=== PATIENT | female | born 1995 | race Caucasian/White ===

== ENCOUNTER 2023-10-11 10:08 | Outpatient (CLI) | payer OTHER, SELFPAY ==
[2023-10-11 11:32] LABS: HCG,Quantitative < 2 mIU/ml (0-5.42)
[2023-10-12 14:35] LABS: Progesterone 6.9 ng/mL (.)
== END 2023-10-11 23:59 ==
PROVIDERS: PCP Pediatrics; Visit Provider Obstetrics & Gynecology
DX: Z32.00 Encounter for pregnancy test, result unknown (principal)
CPT/HCPCS: 36415; 84144; 84702

== ENCOUNTER 2023-11-29 15:24 | Outpatient (CLI) | payer OTHER, SELFPAY ==
--- NOTE | 2023-11-29 15:27 | XR_ITS ---
FINAL REPORT CLINICAL HISTORY: Left lateral ankle pain from fall today. FINDINGS: LEFT ANKLE Three views demonstrate no acute fracture or dislocation. The mortise is intact. There is diffuse soft tissue swelling about the ankle. A moderate plantar spur is noted. IMPRESSION: Diffuse soft tissue swelling with no acute bony abnormality. Reviewed, Interpreted and Dictated by Elder Orta MD Transcribed by Dawn Zavala Authenticated and [facility]
== END 2023-11-29 23:59 ==
LOC: RAD 15:25
PROVIDERS: PCP Nurse Practitioner; Visit Provider Orthopaedic Surgery
DX: M25.572 Pain in left ankle and joints of left foot (principal)
CPT/HCPCS: 73610

== ENCOUNTER 2023-12-13 08:55 | Outpatient (CLI) | payer OTHER, SELFPAY ==
[2023-12-13 10:00] LABS: HCG,Quantitative 62 mIU/ml (0-5.42)
== END 2023-12-13 23:59 ==
LOC: LAB 08:55
PROVIDERS: PCP Nurse Practitioner; Visit Provider Obstetrics & Gynecology
DX: N92.6 Irregular menstruation, unspecified (principal)
CPT/HCPCS: 36415; 84144; 84702

== ENCOUNTER 2023-12-16 09:05 | Outpatient (CLI) | payer OTHER, SELFPAY ==
[2023-12-16 10:16] LABS: HCG,Quantitative 306 mIU/ml (0-5.42)
== END 2023-12-16 23:59 ==
LOC: LAB 09:05
PROVIDERS: PCP Nurse Practitioner; Visit Provider Obstetrics & Gynecology
DX: Z32.00 Encounter for pregnancy test, result unknown (principal)
CPT/HCPCS: 36415; 84702

== ENCOUNTER 2023-12-27 15:54 | Outpatient (CLI) | payer OTHER, SELFPAY | END 2023-12-27 23:59 | LOC: LAB.DROPOF 15:55 | PROVIDERS: PCP Obstetrics & Gynecology; Visit Provider Obstetrics & Gynecology | DX: O26.891 Other specified pregnancy related conditions, first trimester (principal); Z3A.09 9 weeks gestation of pregnancy; B95.2 Enterococcus as the cause of diseases classified elsewhere | CPT/HCPCS: 87086 ==

== ENCOUNTER 2023-12-30 16:05 | Outpatient (CLI) | payer OTHER, SELFPAY ==
[2023-12-30 16:39] LABS: Basophils # 0.1 K/mm3 (0-0.2); Basophils % 0.5 % (0.1-2.0); Eosinophils # 0.1 K/mm3 (0.0-0.4); Eosinophils % 0.9 % (0.1-12.0); Hematocrit 37.1 % (37.0-47.0); Hemoglobin 12.1 g/dL (12.2-16.2); Mean Corpuscular HGB Conc 32.8 g/dL (31.8-35.4); Mean Corpuscular Volume 85.5 fl (81-99); Mean Platelet Volume 8.2 fl (7.4-10.4); Monocytes # 0.5 K/mm3 (0.1-1.0); Monocytes % 4.9 % (1.7-9.3); Neutrophils # 6.7 K/mm3 (1.8-7.8); Neutrophils % 72.6 % (37.0-80.0); Platelet Count 297 K/mm3 (142-424); Red Blood Count 4.34 M/mm3 (4.20-5.40); Red Cell Distribution Width 14.2 % (11.5-17.5); White Blood Count 9.2 K/mm3 (4.8-10.8)
[2023-12-31 12:18] LABS: HIV Screen 4th Generation wRfx Non Reactive (Non Reactive); Rapid Plasma Reagin Ab Titer Non Reactive titer (NonRea<1:1)
[2024-01-01 08:42] LABS: Hepatitis B Surface Antigen Negative; Hepatitis C Antibody Non Reactive
== END 2023-12-30 23:59 ==
LOC: LAB 16:06
PROVIDERS: PCP Nurse Practitioner; Visit Provider Obstetrics & Gynecology
DX: O26.891 Other specified pregnancy related conditions, first trimester (principal); Z3A.09 9 weeks gestation of pregnancy
CPT/HCPCS: 36415; 85025; 86593; 86703; 86762; 86850; 87340; 87380; G0432

== ENCOUNTER 2024-01-02 15:32 | Outpatient (CLI) | payer OTHER, SELFPAY ==
--- NOTE | 2024-01-02 15:32 | US_ITS ---
PROCEDURE: US OB <= 14 WEEKS FETUS CLINICAL INDICATION: Dates/Confirmation of -Viability COMPARISON: No exams were available for comparison FINDINGS: Transvaginal sonographic images of the pelvis were obtained. From her last menstrual period she is 9weeks 1day. A single intrauterine gestational sac is present with a pole with a crown-rump length of 0.77cm This correlates to a gestational age of 6weeks 5days. heart tones are present with an FHR of 124bpm. Yolk sac is noted. The yolk sac measures 5.6mm. There is a small subchorionic hemorrhage. The right ovary is seen and appears normal. The left ovary is seen and appears normal. There is a corpus luteum in the left ovary. There is no fluid in the cul-de-sac. IMPRESSION: 1. Viable intrauterine currently 6 weeks 5 days gestational age. 2. There is a size/date discrepancy and her new EMPERATRIZ will be 08/22/2024 based on this ultrasound. 3. Small subchorionic hemorrhage noted. 4. A corpus luteum is seen in the left ovary. Dictated by: Bao Lee MD 01/03/2024 07:51 Bao Lee MD in [facility] 01/03/2024 07:51
== END 2024-01-02 23:59 ==
LOC: RAD 15:32
PROVIDERS: PCP Nurse Practitioner; Visit Provider Obstetrics & Gynecology
DX: O26.891 Other specified pregnancy related conditions, first trimester (principal); Z3A.01 Less than 8 weeks gestation of pregnancy
CPT/HCPCS: 76801

== ENCOUNTER 2024-02-28 12:05 | Outpatient (CLI) | payer OTHER, SELFPAY ==
[2024-02-28 12:50] VITALS: BP 126/70; PULSE 96; RESP 18; O2SAT 98
[2024-02-28] MEDS: MVI, ADULT NO.1 WITH VIT K 10 ML, THIAMINE HCL 100 MG, MAGNESIUM SULFATE 2 GM in LACTAT... 250 ML IV (12:50)
[2024-02-28 14:39] LABS: Thyroid Stimulating Hormone 0.67 uIU/mL (0.465-4.68)
[2024-02-28 16:13] VITALS: BP 121/68; PULSE 86; RESP 18; O2SAT 100
== END 2024-02-28 16:13 | disposition home or self-care (01) ==
PROVIDERS: PCP Nurse Practitioner; Visit Provider Obstetrics & Gynecology
DX: O21.9 Vomiting of pregnancy, unspecified (principal); E06.3 Autoimmune thyroiditis; E05.00 Thyrotoxicosis with diffuse goiter without thyrotoxic crisis or storm; Z79.899 Other long term (current) drug therapy; E86.0 Dehydration; O26.891 Other specified pregnancy related conditions, first trimester; Z3A.14 14 weeks gestation of pregnancy
CPT/HCPCS: 84443; 96365; 96366; J7120

== ENCOUNTER 2024-04-08 07:27 | Outpatient (CLI) | payer OTHER, SELFPAY ==
--- NOTE | 2024-04-08 | US_ITS ---
PROCEDURE: US OB >= 14 WEEKS FETUS CLINICAL INDICATION: COMPARISON: No exams were available for comparison FINDINGS: Transabdominal sonographic images of the pelvis were obtained. The following parameters are obtained: From her established due date she is 20weeks 4days Viable fetus in the cephalic presentation with a posterior placenta grade 1. The cervix measures 4.4-4.9 cm transvaginally. The placenta is well away from the cervix. heart rate: 146bpm bpm. Amniotic fluid index: Fluid appears normal. No obvious anomalies evident. profile seen, nasion appear normal. IMPRESSION: 1. This is a 2nd ultrasound done today looking at the fetus transabdominally. 2. Viable fetus in the cephalic presentation with a posterior placenta grade 1. 3. The fluid is within normal limits. 4. Baby is active. 5. On a previous ultrasound the cervix transvaginally measures 4.4-4.9 cm. 6. No evidence of bleeding or abruption. No obvious cause for the vaginal bleeding. Dictated by: aBo Lee MD 04/08/2024 10:14 Bao Lee MD in [facility] 04/08/2024 10:14
[2024-04-08 07:56] VITALS: BP 139/67; PULSE 99; RESP 18; TEMP 36.4; O2SAT 99; BMI 44.2
[2024-04-08 07:58] VITALS: BMI 44.2
--- NOTE | 2024-04-08 08:02 | US_ITS ---
PROCEDURE: US OB TRANSVAGINAL CLINICAL INDICATION: vaginal bleeding COMPARISON: US US OB <= 14 WEEKS FETUS from 01/02/2024 US US OB >= 14 WEEKS FETUS from 04/08/2024 FINDINGS: Transabdominal sonographic images of the uterus were obtained. From her established due date she is 20weeks 4days. The following parameters are obtained: Viable Fetus in the cephalic presentation with a posterior placenta grade 1. No evidence of placental abruption. The placenta is well away from the cervix. The cervix measures 4.4-4.9 cm transvaginally. A Hinds Jimenez contraction is seen in the lower uterine segment anteriorly. The fetus is active. Amniotic fluid index: Appears normal. No obvious anomalies evident.Profile, nasion, appears normal. IMPRESSION: 1. Viable fetus in the cephalic presentation with a posterior placenta grade 1. 2. There is no evidence of abruption and no active bleeding seen from the placenta. 3. The placenta is well away from the cervix. 4. Transvaginally the cervix measures 4.4-4.9 cm in length. 5. The fluid is normal around the fetus. 6. Fetus is active. Dictated by: Bao Lee MD 04/08/2024 10:11 Bao Lee MD in [facility] 04/08/2024 10:11
[2024-04-08 08:03] LABS: Microscopic, Urine URINE MICROSCOPIC (MICROSCOPIC)
[2024-04-08 08:17] LABS: Appearance,Urine CLEAR (Clear); Blood, Urine 2+ (Negative); Color,Urine YELLOW (Yellow); Glucose,Urine (UA) Negative (Negative); Ketones,Urine Negative (Negative); Leukocyte Esterase,Urine Negative (Negative); Nitrate,Urine Negative (Negative); Protein,Urine Negative (Negative); Specific Gravity, Urine >= 1.030 (1.005-1.030)
[2024-04-08 08:31] LABS: Amphetamine/Metha Screen,Urine Negative ng/ml (<1000); Barbiturates Screen,Urine Negative ng/ml (<200)
[2024-04-08 08:32] LABS: Benzodiazepines Screen,Urine Negative ng/ml (<200); Cannabinoid Screen,Urine Negative ng/ml (<50)
[2024-04-08 08:33] LABS: Calcium Oxalate Crystals,Urine Trace /lpf; Cocaine Screen,Urine Negative ng/ml (<300); Squamous Epithelial Cell,Urine 20-50 #/hpf (0-5)
[2024-04-08 08:34] LABS: Methadone Screen,Urine Negative ng/ml (<300); Opiate Screen,Urine Negative ng/ml (<300)
[2024-04-08 08:35] LABS: Phencyclidine Screen,Urine Negative ng/ml (<25)
[2024-04-08 08:38] LABS: Amorphous Sediment,Urine Trace /lpf; Bacteria,Urine Trace /lpf; Mucus,Urine Trace /lpf
[2024-04-08 16:05] LABS: Bilirubin,Urine 1+ (Negative)
== END 2024-04-08 09:51 | disposition home or self-care (01) ==
LOC: OBOUT 07:29 → OB 07:29
PROVIDERS: PCP Nurse Practitioner; Visit Provider Nurse Practitioner Obstetrics & Gynecology
DX: O46.92 Antepartum hemorrhage, unspecified, second trimester (principal); Z3A.20 20 weeks gestation of pregnancy
CPT/HCPCS: 76805; 76817; 80307; 81001; G0463

== ENCOUNTER 2024-04-10 15:22 | Outpatient (CLI) | payer OTHER, SELFPAY ==
--- NOTE | 2024-04-10 15:23 | US_ITS ---
PROCEDURE: US OB /MATERNAL DETAIL CLINICAL INDICATION: 20 wk ob complete-Anatomy COMPARISON: US US OB <= 14 WEEKS FETUS from 01/02/2024 FINDINGS: Transabdominal sonographic images of the pelvis were obtained. From her established due date she is 20 weeks 6 days. Single viable intrauterine gestation. Cephalic position. Placenta: Posteriorplacenta grade 1. There is an average amount of fluid. MVP 6.52 cm. The cervix appears satisfactory. Closed and measuring 3.8 cm in length. Complete survey performed and was unremarkable on the submitted images as in PACS. No discrete anomalies identified on survey imaging by technologist. Active fetus. Three-vessel cord with satisfactory umbilical cord insertion. 4- chamber heart noted. Situs, aortic arch, LVOT, RVOT, three-vessel view appear normal. Survey of brain & ventricles Unremarkable. Cerebellum, thalamus, choroid plexus, cisterna magna appear normal. Face and neck survey unremarkable. Profile, nasion, lips and nose appeared normal. Diaphragm and chest views unremarkable. Abdomen: Both kidneys noted and unremarkable. Stomach and bladder noted and satisfactory. Spine: Survey of the spine was not done today due to position. Both arms and legs noted. Amniotic Fluid: Adequate. Measurements: Average ultrasound age 21weeks 5days. Estimated due date by ultrasound age 1108/16/2024. Estimated weight 464g BPD = 21weeks 6days HC = 20weeks 6days AC = 22weeks 6days FL = 21weeks 2days Growth Percentile= 93 Heart Rate = 150bpm Cerebellum = 19weeks 6days Humerus = 21weeks 4days HC/AC is 1.03 FL/BPD is 0.68 FL/AC is 0.2 IMPRESSION: 1. Viable fetus in the cephalic presentation with a posterior placenta grade 1. 2. The fluid is within normal limits with an MVP of 6.52 cm. 3. Anatomical scan appears normal. 4. biometry is consistent with a dates. 5. spine anatomy and aortic arch were not seen today secondary to position. Suggest repeat scan in 2 weeks. Dictated by: Bao Lee MD 04/11/2024 11:52 Bao Lee MD in [facility] 04/11/2024 11:52
== END 2024-04-10 23:59 | disposition home or self-care (01) ==
LOC: RAD 15:23
PROVIDERS: PCP Nurse Practitioner; Visit Provider Obstetrics & Gynecology
DX: Z36.3 Encounter for antenatal screening for malformations (principal); Z3A.20 20 weeks gestation of pregnancy
CPT/HCPCS: 76811

== ENCOUNTER 2024-04-15 17:00 | Outpatient (CLI) | payer OTHER, SELFPAY | END 2024-04-15 23:59 | disposition home or self-care (01) | LOC: LAB.DROPOF 17:01 | PROVIDERS: PCP Obstetrics & Gynecology; Visit Provider Obstetrics & Gynecology | DX: L02.91 Cutaneous abscess, unspecified (principal) | CPT/HCPCS: 87070; 87077; 87186; 87205 ==

== ENCOUNTER 2024-04-22 16:27 | Outpatient (CLI) | payer OTHER, SELFPAY ==
[2024-04-22 20:04] LABS: Creatinine,Urine Random 127 mg/dL (Not Estab.)
== END 2024-04-22 23:59 | disposition home or self-care (01) ==
LOC: LAB.DROPOF 16:27
PROVIDERS: PCP Obstetrics & Gynecology; Visit Provider Obstetrics & Gynecology
DX: O23.42 Unspecified infection of urinary tract in pregnancy, second trimester (principal); R51.9 Headache, unspecified; H53.9 Unspecified visual disturbance; N39.0 Urinary tract infection, site not specified; B96.20 Unspecified Escherichia coli [E. coli] as the cause of diseases classified elsewhere; Z3A.22 22 weeks gestation of pregnancy
CPT/HCPCS: 82570; 84156; 87086; 87088; 87186

== ENCOUNTER 2024-04-24 10:26 | Outpatient (CLI) | payer OTHER, SELFPAY ==
--- NOTE | 2024-04-24 10:28 | US_ITS ---
PROCEDURE: US OB FOLLOW UP CLINICAL INDICATION: follow up scan in 2 weeks for spine anatomy COMPARISON: US US OB /MATERNAL DETAIL from 04/10/2024 FINDINGS: Transabdominal sonographic images of the pelvis were obtained. The following parameters are obtained: From her established due date she is 22weeks 6days Viable fetus in the cephalic presentation with a posterior placenta grade 1. The cervix measures 2.78 cm-3.15 cm. heart rate: 140bpm bpm Amniotic fluid: MVP 7.71 cm. No obvious anomalies evident. profile seen, stomach, bladder, kidneys, three-vessel cord, four chamber heart appear normal. Aortic arch: The aortic arch is seen and appears normal. spine: Cervical, thoracic and lower spine appear normal. IMPRESSION: 1. Viable fetus in the cephalic presentation with a posterior placenta grade 1. 2. The fluid is within normal limits with an MVP of 7.71 cm. 3. Limited anatomical scan appears normal today. The aortic arch and spine are seen in their entirety appear normal. 4. The rest of the limited anatomical scan appears normal. Dictated by: Bao Lee MD 04/25/2024 12:47 Bao Lee MD in [facility] 04/25/2024 12:47
== END 2024-04-24 23:59 | disposition home or self-care (01) ==
LOC: RAD 10:26
PROVIDERS: PCP Nurse Practitioner; Visit Provider Obstetrics & Gynecology
DX: Z36.2 Encounter for other antenatal screening follow-up (principal); Z3A.22 22 weeks gestation of pregnancy
CPT/HCPCS: 76816

== ENCOUNTER 2024-06-09 17:06 | Outpatient (CLI) | payer OTHER, SELFPAY ==
[2024-06-09 18:12] VITALS: BMI 46.0
[2024-06-09 18:29] VITALS: BP 118/70; PULSE 97; RESP 18; TEMP 36.9; O2SAT 100; BMI 46.0
[2024-06-09 18:31] LABS: Benzodiazepines Screen,Urine Negative ng/ml (<200)
[2024-06-09 18:32] LABS: Amphetamine/Metha Screen,Urine Negative ng/ml (<1000); Barbiturates Screen,Urine Negative ng/ml (<200)
[2024-06-09 18:33] LABS: Methadone Screen,Urine Negative ng/ml (<300)
[2024-06-09 18:34] LABS: Cannabinoid Screen,Urine Negative ng/ml (<50); Cocaine Screen,Urine Negative ng/ml (<300)
[2024-06-09 18:35] LABS: Opiate Screen,Urine Negative ng/ml (<300)
[2024-06-09 18:35] LABS: Fetal Membrane Rupture (Rapid) Negative (Negative)
[2024-06-09 18:36] LABS: Phencyclidine Screen,Urine Negative ng/ml (<25)
[2024-06-09 18:44] LABS: Microscopic, Urine URINE MICROSCOPIC (MICROSCOPIC)
[2024-06-09 18:45] LABS: Appearance,Urine CLEAR (Clear); Bilirubin,Urine Negative (Negative); Blood, Urine Negative (Negative); Color,Urine YELLOW (Yellow); Glucose,Urine (UA) Negative (Negative); Ketones,Urine 1+ (Negative); Leukocyte Esterase,Urine TRACE (Negative); Nitrate,Urine Negative (Negative); Protein,Urine Negative (Negative); Specific Gravity, Urine >= 1.030 (1.005-1.030); Urobilinogen,Urine 0.2 EU/dl (0.2)
[2024-06-09 19:06] LABS: Bacteria,Urine 4+ /lpf; Calcium Oxalate Crystals,Urine 1+ /lpf; WBC,Urine 20-50 #/hpf (0-3); Yeast,Urine Occasional /lpf
[2024-06-09] MEDS: LACTATED RINGERS 1000ML 1,000 ML 999 ML IV (19:35)
[2024-06-09] MEDS: BETAMETHASONE ACET/PHOS 6MG/ML 5ML MDV 12 MG IM (19:47)
== END 2024-06-09 20:25 | disposition home or self-care (01) ==
LOC: OBOUT 17:08 → OB 17:08
PROVIDERS: PCP Nurse Practitioner; Visit Provider Nurse Practitioner Obstetrics & Gynecology
DX: O42.913 Preterm premature rupture of membranes, unspecified as to length of time between rupture and onset of labor, third trimester (principal); O47.03 False labor before 37 completed weeks of gestation, third trimester; Z3A.29 29 weeks gestation of pregnancy
CPT/HCPCS: 80307; 81001; 84112; 87086; G0463; J0702; J7120

== ENCOUNTER 2024-06-10 19:40 | Outpatient (CLI) | payer OTHER, SELFPAY ==
[2024-06-10 19:40] VITALS: BP 136/95; PULSE 99; RESP 18; TEMP 36.8; O2SAT 99
--- NOTE | 2024-06-10 19:50 | PC.NURSE ---
Pt arrived to unit in room 272 to recieved second dose of celestone. Pt is A/O, denies discomfort, reports positive movement.
[2024-06-10] MEDS: BETAMETHASONE ACET/PHOS 6MG/ML 5ML MDV 12 MG IM (19:57)
--- NOTE | 2024-06-10 20:00 | PC.NURSE ---
Pt ambulating off unit at this time. Tolerated injection well without any negative effects noted. Denies any questions at this time.
== END 2024-06-10 20:00 | disposition home or self-care (01) ==
LOC: OBOUT 19:41 → OB 19:42
PROVIDERS: PCP Nurse Practitioner; Visit Provider Nurse Practitioner Obstetrics & Gynecology
DX: O26.893 Other specified pregnancy related conditions, third trimester (principal); Z3A.29 29 weeks gestation of pregnancy
CPT/HCPCS: G0463; J0702

== ENCOUNTER 2024-06-15 10:39 | Outpatient (CLI) | payer OTHER, SELFPAY ==
--- NOTE | 2024-06-15 10:40 | US_ITS ---
PROCEDURE: US OB FOLLOW UP CLINICAL INDICATION: LGA COMPARISON: US US OB /MATERNAL DETAIL from 04/10/2024 US US OB FOLLOW UP from 04/24/2024 FINDINGS: Transabdominal sonographic images of the pelvis were obtained. The following parameters are obtained: From her established due date she is 30weeks 2days Viable fetus in the cephalic presentation with a posterior placenta grade 2. The cervix measures 3.4 cm transvaginally heart rate: 149bpm bpm. weight 1782 grams, 3 lb 15 oz. BPD: 32weeks 4days, 93 percentile HC: 32weeks 3days, 72 percentile AC: 31weeks 5days, 82 percentile FL: 31weeks 0 days, 52 percentile HC/AC: 1.06 FL/BPD: 0.73 FL/AC: 0.22 Growth percentile: 79 Amniotic fluid index: 10.8cm, MVP 6.22 cm. No obvious anomalies evident. profile seen, stomach, bladder, kidneys, lips, nose, three-vessel cord, appear normal. IMPRESSION: 1. Viable fetus in the cephalic presentation with a posterior placenta grade 2. 2. The fluid is within normal limits with an amniotic fluid index of 10.8 cm, MVP 6.22 cm. 3. There has been good interval growth with the fetus currently 79th percentile. 4. Limited anatomical scan appears normal. 5. Cervix measures 2.8 cm-3.4 cm and the operations assistant commented that the cervix appeared softened. Dictated by: Bao Lee MD 06/15/2024 11:42 Bao Lee MD in [facility] 06/15/2024 11:42
== END 2024-06-15 23:59 | disposition home or self-care (01) ==
LOC: RAD 10:40
PROVIDERS: PCP Nurse Practitioner; Visit Provider Obstetrics & Gynecology
DX: O36.60X0 Maternal care for excessive fetal growth, unspecified trimester, not applicable or unspecified (principal); Z98.891 History of uterine scar from previous surgery; Z3A.30 30 weeks gestation of pregnancy
CPT/HCPCS: 76816

== ENCOUNTER 2024-06-15 12:21 | Outpatient (CLI) | payer OTHER, SELFPAY ==
[2024-06-15 12:30] VITALS: BP 95/63; PULSE 99; RESP 18; TEMP 36.9; O2SAT 100
[2024-06-15 12:32] VITALS: BMI 46.0
[2024-06-15 13:00] VITALS: BMI 46.0
== END 2024-06-15 13:45 | disposition home or self-care (01) ==
LOC: OBOUT 12:22 → OB 12:23
PROVIDERS: PCP Nurse Practitioner; Visit Provider Obstetrics & Gynecology
DX: O47.03 False labor before 37 completed weeks of gestation, third trimester (principal); Z3A.30 30 weeks gestation of pregnancy
CPT/HCPCS: G0463

== ENCOUNTER 2024-06-19 08:03 | Outpatient (CLI) | payer OTHER, SELFPAY ==
[2024-06-19 08:20] LABS: Basophils # 0.1 K/mm3 (0-0.2); Basophils % 0.5 % (0.1-2.0); Eosinophils # 0.1 K/mm3 (0.0-0.4); Eosinophils % 0.6 % (0.1-12.0); Hematocrit 35.9 % (37.0-47.0); Hemoglobin 11.5 g/dL (12.2-16.2); Lymphocytes # 1.6 K/mm3 (0.7-4.5); Mean Corpuscular HGB Conc 32.1 g/dL (31.8-35.4); Mean Corpuscular Hemoglobin 26.8 pg (27.0-31.2); Mean Corpuscular Volume 83.6 fl (81-99); Mean Platelet Volume 9.4 fl (7.4-10.4); Monocytes # 0.5 K/mm3 (0.1-1.0); Monocytes % 5.3 % (1.7-9.3); Neutrophils # 7.3 K/mm3 (1.8-7.8); Neutrophils % 76.6 % (37.0-80.0); Platelet Count 292 K/mm3 (142-424); Red Blood Count 4.29 M/mm3 (4.20-5.40); Red Cell Distribution Width 14.8 % (11.5-17.5); White Blood Count 9.6 K/mm3 (4.8-10.8)
[2024-06-19 08:58] LABS: Glucose,Fasting 87 mg/dl (74-100)
[2024-06-19 10:16] LABS: Glucose 1 Hour 92 mg/dL (74-100)
[2024-06-20 13:38] LABS: Rapid Plasma Reagin Ab Titer Non Reactive titer (NonRea<1:1)
== END 2024-06-19 23:59 | disposition home or self-care (01) ==
LOC: LAB 08:04
PROVIDERS: Visit Provider Obstetrics & Gynecology
DX: Z34.90 Encounter for supervision of normal pregnancy, unspecified, unspecified trimester (principal)
CPT/HCPCS: 36415; 82951; 85025; 86593

== ENCOUNTER 2024-06-22 08:02 | Outpatient (CLI) | payer OTHER, SELFPAY ==
[2024-06-22 08:30] VITALS: BMI 45.7
[2024-06-22 08:35] VITALS: BP 109/65; PULSE 95; RESP 19; TEMP 36.8; O2SAT 98; BMI 45.7
[2024-06-22 08:35] LABS: Microscopic, Urine URINE MICROSCOPIC (MICROSCOPIC)
[2024-06-22 08:58] LABS: Appearance,Urine CLEAR (Clear); Bilirubin,Urine Negative (Negative); Blood, Urine Negative (Negative); Color,Urine YELLOW (Yellow); Glucose,Urine (UA) Negative (Negative); Ketones,Urine Negative (Negative); Leukocyte Esterase,Urine TRACE (Negative); Nitrate,Urine Negative (Negative); Protein,Urine Negative (Negative); Specific Gravity, Urine >= 1.030 (1.005-1.030)
[2024-06-22 09:11] LABS: Barbiturates Screen,Urine Negative ng/ml (<200)
[2024-06-22 09:12] LABS: Amphetamine/Metha Screen,Urine Negative ng/ml (<1000); Bacteria,Urine Trace /lpf; Benzodiazepines Screen,Urine Negative ng/ml (<200); WBC,Urine Occasional #/hpf (0-3)
[2024-06-22 09:13] LABS: Cannabinoid Screen,Urine Negative ng/ml (<50)
[2024-06-22 09:14] LABS: Cocaine Screen,Urine Negative ng/ml (<300); Methadone Screen,Urine Negative ng/ml (<300)
[2024-06-22 09:15] LABS: Opiate Screen,Urine Negative ng/ml (<300); Phencyclidine Screen,Urine Negative ng/ml (<25)
== END 2024-06-22 09:13 | disposition home or self-care (01) ==
LOC: OBOUT 08:03 → OB 08:04
PROVIDERS: PCP Nurse Practitioner; Visit Provider Obstetrics & Gynecology
DX: O26.893 Other specified pregnancy related conditions, third trimester (principal); Z3A.31 31 weeks gestation of pregnancy; R10.30 Lower abdominal pain, unspecified
CPT/HCPCS: 80307; 81001; G0463

== ENCOUNTER 2024-06-29 08:30 | Outpatient (CLI) | payer OTHER, SELFPAY ==
[2024-06-29 08:50] VITALS: BP 113/69; PULSE 78; RESP 18; TEMP 36.8; O2SAT 99; BMI 47.1
[2024-06-29 09:09] VITALS: BMI 47.1
--- NOTE | 2024-06-29 09:15 | EXP.ACUTE.PN ---
Subjective *Date: 06/29/24 *Time: 09:15 Interval history: She is 32 weeks gestational age and here for a nonstress test. Medical Exam Vital signs and Labs for Last 24 Hours: Intake and Output 06/28/24 06/29/24 06/29/24 19:59 03:59 11:59 Other: Weight 266 lb Patient Weight 06/29/24 11:59 Weight 266 lb I & O for Labs for Last 24 Hours: Intake & Output 06/26/24 06/27/24 06/28/24 06/29/24 11:59 11:59 11:59 11:59 Weight 266 lb ENT: Present normal exam Neck: Present normal inspection Respiratory: Present normal respiratory effort; Absent accessory muscle use Assessment and Plan *Assessment and plan (1) uterine contractions: Status: Acute Category: Medical Code(s): O47.00 - False labor before 37 completed weeks of gestation, unspecified trimester (2) Maternal obesity affecting , antepartum: Status: Acute Qualifiers: Obesity type affecting : severe obesity due to excess calories Qualified Code(s): O99.210 - Obesity complicating , unspecified trimester; E66.01 - Morbid (severe) obesity due to excess calories Category: Medical Code(s): O99.210 - Obesity complicating , unspecified trimester Plan She is here for nonstress test today. There are no contractions. The nonstress test is reactive. There is good [id number] variability with good accelerations. She will follow-up again in [address] Kenny.
== END 2024-06-29 09:15 | disposition home or self-care (01) ==
LOC: OBOUT 08:31 → OB 08:32
PROVIDERS: PCP Nurse Practitioner; Visit Provider Nurse Practitioner Obstetrics & Gynecology
DX: O47.03 False labor before 37 completed weeks of gestation, third trimester (principal); Z3A.32 32 weeks gestation of pregnancy
CPT/HCPCS: G0463

== ENCOUNTER 2024-07-06 08:36 | Outpatient (CLI) | payer OTHER, SELFPAY ==
[2024-07-06 08:57] VITALS: BP 123/68; PULSE 111; RESP 18; TEMP 36.7; O2SAT 98; BMI 47.1
== END 2024-07-06 09:40 | disposition home or self-care (01) ==
LOC: OBOUT 08:37 → OB 08:38
PROVIDERS: PCP Nurse Practitioner; Visit Provider Nurse Practitioner Obstetrics & Gynecology
DX: O47.03 False labor before 37 completed weeks of gestation, third trimester (principal); Z3A.33 33 weeks gestation of pregnancy
CPT/HCPCS: G0463

== ENCOUNTER 2024-07-07 11:47 | Outpatient (CLI) | payer OTHER, SELFPAY ==
[2024-07-07 12:22] VITALS: BMI 47.1
[2024-07-07 12:43] LABS: Fetal Membrane Rupture (Rapid) Negative (Negative)
[2024-07-07 12:56] VITALS: BP 110/67; PULSE 92; RESP 20; TEMP 36.6; O2SAT 98; BMI 47.1
[2024-07-07] MEDS: DEXTROSE 5%-LACTATED RINGERS 1,000 ML 999 ML IV ×2 (13:26→15:43)
[2024-07-07 15:28] LABS: Microscopic, Urine URINE MICROSCOPIC (MICROSCOPIC)
[2024-07-07 15:34] LABS: Appearance,Urine CLEAR (Clear); Bilirubin,Urine Negative (Negative); Blood, Urine Negative (Negative); Color,Urine YELLOW (Yellow); Glucose,Urine (UA) Negative (Negative); Ketones,Urine Negative (Negative); Leukocyte Esterase,Urine TRACE (Negative); Nitrate,Urine Negative (Negative); Protein,Urine Negative (Negative); Specific Gravity, Urine 1.025 (1.005-1.030); Urobilinogen,Urine 0.2 EU/dl (0.2)
[2024-07-07 15:41] LABS: Bacteria,Urine Trace /lpf
[2024-07-07 15:46] LABS: Barbiturates Screen,Urine Negative ng/ml (<200); Benzodiazepines Screen,Urine Negative ng/ml (<200)
[2024-07-07 15:47] LABS: Amphetamine/Metha Screen,Urine Negative ng/ml (<1000)
[2024-07-07 15:48] LABS: Cannabinoid Screen,Urine Negative ng/ml (<50); Cocaine Screen,Urine Negative ng/ml (<300)
[2024-07-07 15:49] LABS: Methadone Screen,Urine Negative ng/ml (<300)
[2024-07-07 15:50] LABS: Opiate Screen,Urine Negative ng/ml (<300); Phencyclidine Screen,Urine Negative ng/ml (<25)
[2024-07-07] MEDS: NIFEdipine 10MG CAPSULE 10 MG PO (16:27)
== END 2024-07-07 17:48 | disposition home or self-care (01) ==
LOC: OBOUT 11:49 → OB 11:49
PROVIDERS: PCP Nurse Practitioner; Visit Provider Nurse Practitioner Obstetrics & Gynecology
DX: O47.03 False labor before 37 completed weeks of gestation, third trimester (principal); Z3A.33 33 weeks gestation of pregnancy
CPT/HCPCS: 80307; 81001; 84112; G0463

== ENCOUNTER 2024-07-13 08:49 | Outpatient (CLI) | payer OTHER, SELFPAY ==
--- NOTE | 2024-07-13 08:54 | US_ITS ---
PROCEDURE: US OB BIOPHYSICAL PROFILE CLINICAL INDICATION: LGA/ Gestational hypertension COMPARISON: US US OB <= 14 WEEKS FETUS from 01/02/2024 US US OB >= 14 WEEKS FETUS from 04/08/2024 US US OB /MATERNAL DETAIL from 04/10/2024 US OB FOLLOW UP from 04/24/2024 US OB FOLLOW UP from 06/15/2024 FINDINGS: Transabdominal sonographic images of the uterus were obtained. From her established due date she is 34weeks 2days. The following parameters are obtained: Viable Fetus in the BREECH presentation with a posterior placenta grade 2. Average ultrasound age is 36weeks 0 days Estimated weight 2,819g, 6 lb 3 oz Cervix measures 3.43 cm. Measurements: heart Rate = 150bpm BPD = 36weeks 1day, 90 percentile HC = 36weeks 6days, 79 percentile AC = 36weeks 5days, 97 percentile FL = 34weeks 1day, 36 percentile HC/AC is 0.99 FL/BPD is 0.74 FL/AC is 0.2 89 percentile Amniotic Fluid: 2 breathing movement: 2 tone: 2 body movement: 2 Biophysical profile: 8 Amniotic fluid index: 13.12cm, MVP 4.86 cm. No obvious anomalies evident.Kidneys, profile, bladder, stomach, four-chamber heart, three-vessel cord appear normal. IMPRESSION: 1. Viable fetus in the BREECH presentation with a posterior placenta grade 2. 2. The fluid is within normal limits with an amniotic fluid index of 13.12 cm, MVP 4.86 cm. 3. There has been good interval growth with the fetus currently 89th percentile. The AC is more than 2 weeks ahead. 4. Biophysical profile is 8/8 with good breathing movement and movement seen. 5. Limited anatomical scan appears normal. Dictated by: Bao Lee MD 07/13/2024 11:34 Bao Lee MD in [facility] 07/13/2024 11:34
== END 2024-07-13 23:59 | disposition home or self-care (01) ==
LOC: RAD 08:50
PROVIDERS: PCP Nurse Practitioner; Visit Provider Obstetrics & Gynecology
DX: O36.63X0 Maternal care for excessive fetal growth, third trimester, not applicable or unspecified (principal); O13.3 Gestational [pregnancy-induced] hypertension without significant proteinuria, third trimester; Z3A.34 34 weeks gestation of pregnancy
CPT/HCPCS: 76816; 76819

== ENCOUNTER 2024-07-16 09:55 | Outpatient (CLI) | payer OTHER, SELFPAY ==
--- NOTE | 2024-07-16 09:59 | US_ITS ---
PROCEDURE: US OB BIOPHYSICAL PROFILE CLINICAL INDICATION: non reactive nst COMPARISON: US US OB TRANSVAGINAL from 04/08/2024 US US OB /MATERNAL DETAIL from 04/10/2024 US OB FOLLOW UP from 04/24/2024 US OB FOLLOW UP from 06/15/2024 US OB BIOPHYSICAL PROFILE from 07/13/2024 FINDINGS: Transabdominal sonographic images of the uterus were obtained. From her established due date she is 35weeks 2days. The following parameters are obtained: Viable Fetus in the cephalic presentation with a posterior placenta grade 2. Cervix measures 2.87 cm transvaginally. Measurements: heart Rate = 136bpm Amniotic fluid index: 10.59cm, MVP 3.96 cm. Qualitative AFV:2 Breathing movements: 2 Gross Body Movements: 2 Tone: 2 Biophysical profile score: 8 No obvious anomalies evident.Kidneys, profile, three-vessel cord appear normal. IMPRESSION: 1. Viable fetus in the cephalic presentation with a posterior placenta grade 2. 2. The fluid is within normal limits with an amniotic fluid index of 10.59 cm and MVP 3.96 cm. 3. Biophysical profile is 8/8 with good breathing movement and movement seen. 4. Limited anatomical scan appears normal. Dictated by: Bao Lee MD 07/17/2024 12:33 Bao Lee MD in [facility] 07/17/2024 12:33
[2024-07-16 13:15] LABS: Thyroid Stimulating Hormone 1.73 uIU/mL (0.465-4.68)
== END 2024-07-16 23:59 | disposition home or self-care (01) ==
LOC: RAD 09:55
PROVIDERS: PCP Nurse Practitioner; Visit Provider Obstetrics & Gynecology
DX: O99.213 Obesity complicating pregnancy, third trimester (principal); E66.01 Morbid (severe) obesity due to excess calories; O47.03 False labor before 37 completed weeks of gestation, third trimester; E06.3 Autoimmune thyroiditis; Z3A.35 35 weeks gestation of pregnancy
CPT/HCPCS: 36415; 76819; 84443

== ENCOUNTER 2024-07-20 08:13 | Outpatient (CLI) | payer OTHER, SELFPAY ==
[2024-07-20 08:27] VITALS: BMI 46.0
[2024-07-20 08:34] VITALS: BP 121/74; PULSE 93; RESP 17; TEMP 36.7; O2SAT 97; BMI 46.0
== END 2024-07-20 09:21 | disposition home or self-care (01) ==
LOC: OBOUT 08:16 → OB 08:16
PROVIDERS: PCP Nurse Practitioner; Visit Provider Obstetrics & Gynecology
DX: O60.03 Preterm labor without delivery, third trimester (principal); Z3A.35 35 weeks gestation of pregnancy
CPT/HCPCS: G0463

== ENCOUNTER 2024-07-23 15:30 | Outpatient (CLI) | payer OTHER, SELFPAY ==
[2024-07-23 15:59] LABS: Basophils % 0.3 % (0.1-2.0); Eosinophils # 0.1 K/mm3 (0.0-0.4); Eosinophils % 0.6 % (0.1-12.0); Hematocrit 36.1 % (37.0-47.0); Hemoglobin 11.9 g/dL (12.2-16.2); Lymphocytes # 1.7 K/mm3 (0.7-4.5); Lymphocytes % 15.6 % (10-50); Mean Corpuscular HGB Conc 32.9 g/dL (31.8-35.4); Mean Corpuscular Hemoglobin 25.8 pg (27.0-31.2); Mean Corpuscular Volume 78.3 fl (81-99); Mean Platelet Volume 8.2 fl (7.4-10.4); Monocytes # 0.4 K/mm3 (0.1-1.0); Neutrophils # 8.8 K/mm3 (1.8-7.8); Neutrophils % 79.6 % (37.0-80.0); Platelet Count 258 K/mm3 (142-424); Red Blood Count 4.61 M/mm3 (4.20-5.40); Red Cell Distribution Width 15.2 % (11.5-17.5)
[2024-07-23 16:25] LABS: Alanine Aminotransferase 23 U/L (12-78); Albumin Level 3.1 g/dl (3.5-5.0); Albumin/Globulin Ratio 1.2 (1.1-1.8); Alkaline Phosphatase 153 U/L (38-126); Anion Gap 10.1 mEq/L (5-15); Aspartate Amino Transferase 26 U/L (14-36); Bilirubin,Total 0.4 mg/dl (0.2-1.3); Blood Urea Nitrogen 8 mg/dl (7-17); Carbon Dioxide 23 mmol/L (22.0-30.0); Chloride 108 mmol/L (98-107); Estimated Glomerular Filt Rate 148 ml/min (>60); GFR (African American) 179 ML/MIN (>60); Globulin 2.5 g/dL (1.3-3.2); Glucose 113 mg/dl (74-100); Potassium 4.1 mmoL/L (3.5-5.1); Sodium 137 mmol/L (136-145); Total Protein,Serum 5.6 g/dl (6.3-8.2); Uric Acid 3.1 mg/dl (2.5-6.2)
== END 2024-07-23 23:59 | disposition home or self-care (01) ==
LOC: LAB 15:31
PROVIDERS: PCP Nurse Practitioner; Visit Provider Obstetrics & Gynecology
DX: O47.03 False labor before 37 completed weeks of gestation, third trimester (principal); Z3A.35 35 weeks gestation of pregnancy
CPT/HCPCS: 36415; 80053; 84550; 85025; 86403

== ENCOUNTER 2024-07-24 08:14 | Outpatient (CLI) | payer OTHER, SELFPAY ==
[2024-07-24 10:07] LABS: Creatinine,Urine Random 182 mg/dL (Not Estab.)
== END 2024-07-24 23:59 | disposition home or self-care (01) ==
LOC: LAB 08:15
PROVIDERS: PCP Nurse Practitioner; Visit Provider Obstetrics & Gynecology
DX: O47.03 False labor before 37 completed weeks of gestation, third trimester (principal)
CPT/HCPCS: 82570; 84156

== ENCOUNTER 2024-07-28 09:29 | Outpatient (CLI) | payer OTHER, SELFPAY ==
[2024-07-28 09:54] VITALS: BMI 47.8
[2024-07-28 10:15] LABS: Amphetamine/Metha Screen,Urine Negative ng/ml (<1000)
[2024-07-28 10:16] LABS: Barbiturates Screen,Urine Negative ng/ml (<200); Benzodiazepines Screen,Urine Negative ng/ml (<200)
[2024-07-28 10:17] LABS: Cannabinoid Screen,Urine Negative ng/ml (<50)
[2024-07-28 10:18] LABS: Cocaine Screen,Urine Negative ng/ml (<300); Methadone Screen,Urine Negative ng/ml (<300)
[2024-07-28 10:19] LABS: Opiate Screen,Urine Negative ng/ml (<300)
[2024-07-28 10:20] LABS: Phencyclidine Screen,Urine Negative ng/ml (<25)
[2024-07-28 10:28] VITALS: BP 113/70; PULSE 90; RESP 18; TEMP 36.8; O2SAT 98; BMI 47.8
[2024-07-28 10:47] LABS: Basophils % 0.2 % (0.1-2.0); Eosinophils % 0.3 % (0.1-12.0); Hematocrit 34.3 % (37.0-47.0); Hemoglobin 11.8 g/dL (12.2-16.2); Lymphocytes # 1.5 K/mm3 (0.7-4.5); Lymphocytes % 14.1 % (10-50); Mean Corpuscular HGB Conc 34.4 g/dL (31.8-35.4); Mean Corpuscular Hemoglobin 26.6 pg (27.0-31.2); Mean Corpuscular Volume 77.3 fl (81-99); Mean Platelet Volume 8.4 fl (7.4-10.4); Monocytes # 0.4 K/mm3 (0.1-1.0); Monocytes % 4.1 % (1.7-9.3); Neutrophils # 8.5 K/mm3 (1.8-7.8); Neutrophils % 81.2 % (37.0-80.0); Platelet Count 247 K/mm3 (142-424); Red Blood Count 4.44 M/mm3 (4.20-5.40); Red Cell Distribution Width 15.4 % (11.5-17.5); White Blood Count 10.4 K/mm3 (4.8-10.8)
[2024-07-28 10:49] LABS: Alanine Aminotransferase 23 U/L (12-78); Albumin Level 3.3 g/dl (3.5-5.0); Albumin/Globulin Ratio 1.2 (1.1-1.8); Alkaline Phosphatase 153 U/L (38-126); Anion Gap 6.1 mEq/L (5-15); Aspartate Amino Transferase 33 U/L (14-36); Bilirubin,Total 0.5 mg/dl (0.2-1.3); Blood Urea Nitrogen 8 mg/dl (7-17); Calcium 8.8 mg/dl (8.4-10.2); Carbon Dioxide 24 mmol/L (22.0-30.0); Chloride 108 mmol/L (98-107); Creatinine Clearance Estimated 140 mL/min (50-200); Estimated Glomerular Filt Rate 148 ml/min (>60); GFR (African American) 179 ML/MIN (>60); Globulin 2.8 g/dL (1.3-3.2); Glucose 75 mg/dl (74-100); Potassium 4.1 mmoL/L (3.5-5.1); Sodium 134 mmol/L (136-145); Total Protein,Serum 6.1 g/dl (6.3-8.2)
--- NOTE | 2024-07-28 11:24 | US_ITS ---
Vehicle Service Agent: PROCEDURE: US OB BPP W/FET-MAT S/D CLINICAL INDICATION: non-reactive NST COMPARISON: US US OB TRANSVAGINAL from 04/08/2024 US US OB /MATERNAL DETAIL from 04/10/2024 US US OB FOLLOW UP from 04/24/2024 US US OB FOLLOW UP from 06/15/2024 US US OB BIOPHYSICAL PROFILE from 07/13/2024 US US OB BIOPHYSICAL PROFILE from 07/16/2024 FINDINGS: Transabdominal sonographic images of the uterus were obtained. From her established due date she is 36weeks 3days. The following parameters are obtained: Viable Fetus in the cephalic presentation with a posterior placenta grade 2. Average ultrasound age is 37weeks 2days Estimated weight 3,189g Cervix measures 3.66 cm. Measurements: heart Rate = 121bpm BPD = 37weeks 1day, 79 percentile HC = 37weeks 6days, 54 percentile AC = 38weeks 1day, 93 percent FL = 35weeks 6days, 32 percentile HC/AC is 0.97 FL/BPD is 0.76 FL/AC is 0.2 78 percentile Amniotic fluid index: 7.76cm, MVP 2.88 cm. Qualitative AFV:2 Breathing movements: 2 Gross Body Movements: 2 Tone: 2 Biophysical profile score: 8 No obvious anomalies evident.Kidneys, bladder, four-chamber heart, three-vessel cord appear normal. IMPRESSION: 1. Viable fetus in the cephalic presentation with a posterior placenta grade 2. 2. The fluid is within normal limits with an amniotic fluid index 7.76 cm, MVP 2.88 cm. 3. Biophysical profile is 8/8 with good breathing movement and movement seen. 4. There has been good interval growth of the fetus currently 78th percentile. 5. Limited anatomical scan appears normal. Dictated by: Bao Lee MD 07/28/2024 13:58 Bao Lee MD in [facility] 07/28/2024 13:58
== END 2024-07-28 12:39 | disposition home or self-care (01) ==
LOC: OBOUT 09:30 → OB 09:31
PROVIDERS: PCP Nurse Practitioner; Visit Provider Obstetrics & Gynecology
DX: O36.8130 Decreased fetal movements, third trimester, not applicable or unspecified (principal); Z3A.36 36 weeks gestation of pregnancy
CPT/HCPCS: 76811; 76816; 76819; 80053; 80307; 85025; G0463

== ENCOUNTER 2024-08-02 10:17 | Outpatient (CLI) | payer OTHER, SELFPAY ==
[2024-08-02 21:09] LABS: Basophils % 0.2 % (0.1-2.0); Eosinophils # 0.1 K/mm3 (0.0-0.4); Eosinophils % 1.2 % (0.1-12.0); Hemoglobin 11.1 g/dL (12.2-16.2); Lymphocytes # 1.5 K/mm3 (0.7-4.5); Lymphocytes % 16.7 % (10-50); Mean Corpuscular HGB Conc 34.7 g/dL (31.8-35.4); Mean Corpuscular Hemoglobin 26.9 pg (27.0-31.2); Mean Corpuscular Volume 77.6 fl (81-99); Mean Platelet Volume 8.6 fl (7.4-10.4); Monocytes # 0.4 K/mm3 (0.1-1.0); Monocytes % 4.3 % (1.7-9.3); Neutrophils # 6.8 K/mm3 (1.8-7.8); Neutrophils % 77.6 % (37.0-80.0); Platelet Count 243 K/mm3 (142-424); Red Blood Count 4.12 M/mm3 (4.20-5.40); Red Cell Distribution Width 15.5 % (11.5-17.5); White Blood Count 8.8 K/mm3 (4.8-10.8)
[2024-08-02 21:22] LABS: Albumin Level 3.1 g/dl (3.5-5.0); Chloride 109 mmol/L (98-107); Sodium 135 mmol/L (136-145)
[2024-08-02 21:23] LABS: Potassium 3.6 mmoL/L (3.5-5.1)
[2024-08-02 21:25] LABS: Alanine Aminotransferase 25 U/L (12-78); Albumin/Globulin Ratio 1.1 (1.1-1.8); Alkaline Phosphatase 159 U/L (38-126); Anion Gap 10.6 mEq/L (5-15); Aspartate Amino Transferase 30 U/L (14-36); Bilirubin,Total 0.4 mg/dl (0.2-1.3); Blood Urea Nitrogen 8 mg/dl (7-17); Carbon Dioxide 19 mmol/L (22.0-30.0); Estimated Glomerular Filt Rate 148 ml/min (>60); GFR (African American) 179 ML/MIN (>60); Globulin 2.7 g/dL (1.3-3.2); Total Protein,Serum 5.8 g/dl (6.3-8.2)
[2024-08-02 21:26] LABS: Calcium 8.9 mg/dl (8.4-10.2); Glucose 119 mg/dl (74-100)
[2024-08-02 23:11] LABS: Creatinine,Urine Random 73 mg/dL (Not Estab.)
[2024-08-02 23:41] LABS: Creatinine 24 Hour,Urine 1022 mg/24hr (630-2500); Total Protein 24 Hour,Urine 154 mg/24 hr (40-90); Total Volume,Urine 1400 mL (600-1600)
[2024-08-02 23:42] LABS: Collection Time,Urine 24 hours
[2024-08-03 06:45] LABS: Patient Weight,Urine 270 lbs
[2024-08-03 06:47] LABS: Patient Height,Urine 63 inches
[2024-08-03 06:48] LABS: Creatinine Clearance Urine 112.2 mL/min (25-115)
== END 2024-08-02 23:59 | disposition home or self-care (01) ==
PROVIDERS: PCP Nurse Practitioner; Visit Provider Obstetrics & Gynecology
DX: O13.9 Gestational [pregnancy-induced] hypertension without significant proteinuria, unspecified trimester (principal)
CPT/HCPCS: 36415; 80053; 82575; 84155; 85025; 86850

== ENCOUNTER 2024-08-03 09:51 | Inpatient (IN) | payer OTHER, SELFPAY ==
--- NOTE | 2024-08-03 10:20 | HMH.PHAINT1 ---
Pharmacy Intervention Comments: MEDICATION RECONCILIATION COMPLETED ON PATIENT USING EXTERNAL FILL HISTORY FROM PHARMACY. -PUMA HUIZAR, KEVEND
[2024-08-03 10:23] VITALS: BP 137/86; PULSE 94; RESP 16; TEMP 37; O2SAT 98
[2024-08-03 10:26] VITALS: BMI 48.2
[2024-08-03] MEDS: ACETAMINOPHEN 500MG TAB 1000 MG PO (12:45)
--- NOTE | 2024-08-03 12:51 | EXP.OB.APHP ---
OB - H&P: HPI Antepartum History of Present Illness Chief complaint: elevated blood pressure, headache History of present illness: Maile is a 29 yo at 37w2d admitted to [facility] L&D from the office for elevated blood pressure reading in the office and complaint of headache. She has not tried anything for her headache today. She reports mild range BP at home. She reports intermittent headache for a while. She also reports fatigue and dizziness. Baby is active. She admits to intermittent contractions. No leakage of fluid or vaginal bleeding. PI[facility] labs 08/02 were within normal limits. 24 hour urine protein was 154 on 08/02. She has had good care. History of x 1 and x 2. She is complete with childbearing and desires permanent sterilization. History of Present Criteria for establishing EDC:: based on 1st trimester US only care: good care Ultrasounds: normal mid trimester US Obstetrical complications: gestational hypertension and previous Labs Blood type: O (+) positive Rubella: immune RPR/VDRL: nonreactive GBS status: negative HBsAG: negative [facility] Disclaimer: The information contained in this section may have been updated after the patient was seen, as this information can be updated by other users. Medical History Gestational hypertension uterine contractions Maternal obesity affecting , antepartum Katarina's disease Headache in Surgical History Hx of section History of placement of ear tubes History of tonsillectomy Family History Other Anemia Asthma Bleeding disorder Cancer Coronary artery disease Diabetes FHx: mental illness Heart attack Hyperlipidemia Hypertension Kidney disease Thyroid disorder Social History Smoking Status: Former smoker tobacco type: cigarettes alcohol intake: current alcohol intake frequency: holidays/special occasions only substance use type: denies use current occupational status: employed Travel in the last 8 weeks: None household members: family housing: house Other Medical History Have you received the Flu Vaccine for this season: Yes Have you received the Pneumonia Vaccine: No Review of Systems Review of Systems Review of systems:: pertinent systems reviewed and negative unless documented below Constitutional Constitutional: Reports fatigue and Reports headache(s) ENT Ears, Nose, Mouth, and Throat: Reports dizziness and Reports headache(s) *Neurologic Neurologic: Reports dizziness and Reports headache(s) Endocrine Endocrine: Reports fatigue Meds Home Medications and Allergies Home Medications ?Medication ?Instructions ?Recorded ?Confirmed ?Type vits no.126-ferrous fum 1 tab PO DAILY #30 tabs 10/11/23 08/03/24 Rx 28 mg iron-folic acid 800 mcg tablet (Classic ) aspirin 81 mg tablet,delayed 81 mg PO DAILY 04/15/24 08/03/24 History release famotidine 20 mg tablet 20 mg PO DAILY #30 tabs 07/02/24 08/03/24 Rx New Prescriptions to Start Prescriptions: Allergies Allergy/AdvReac Type Severity Reaction Status Date / Time carbinoxamine [From RONDEC] Allergy Mild I-HIVES Verified 08/03/24 08:50 cefaclor [From CECLOR] Allergy Mild I-HIVES Verified 08/03/24 08:50 pseudoephedrine [From RONDEC] Allergy Mild I-HIVES Verified 08/03/24 08:50 OB - H&P: Exam Physical Exam Vital signs: Temp Pulse Resp BP Pulse Ox O2 Del Method 98.6 F 94 H 16 137/86 98 Room Air 08/03/24 10:23 08/03/24 10:23 08/03/24 10:23 08/03/24 10:23 08/03/24 10:23 08/03/24 10:23 Constitutional morbidly obese and cooperative Routine HEENT Exam Head: Present normocephalic and atraumatic Eye: Absent conjunctivae pink ENT: Present mucous membranes moist Routine Neck Exam Present full ROM Routine Respiratory Exam Present CTA bilaterally and normal respiratory effort Routine Cardiovascular Exam Present RRR Routine Abdominal Exam Present soft (Gravid); Absent tenderness Routine Rectal Exam Patient deferred: visual exam Routine Exam Patient deferred: external exam Routine Extremities Exam Present edema (+2 bilateral lower extremity edema) and full ROM; Absent calf tenderness Routine Neurological Exam Present alert, moving all extremities and normal speech Routine Psychiatric Exam Present normal affect and cooperative Detailed Labor and Delivery Exam Membranes: intact Baseline heart rate: 140 monitor accelerations: Present monitor decelerations: None senior living variability: Moderate (11-25) OB - A/P Antepartum (1) Gestational hypertension: Status: Acute (2) Maternal obesity affecting , antepartum: Status: Acute (3) Katarina's disease: Status: Acute (4) Headache in : Status: Acute (5) Hx of section: Status: Acute Additional Plan Additional Information:: Admit to [facility] L&D for GHTN with headache and elevated BP reading in the office. PI labs 08/02 within normal limits and 24 hr urine protein was 154 Repeat PI labs today. BP on L&D mild range Tylenol ordered for headache NST q shift BP q 4 hours unless becomes severe range NPO at midnight RLTCS with BS scheduled for tomorrow morning, 08/04 at 0730, unless indicated sooner Reviewed risks, benefits, alternatives, expectations and possible complications of surgery. All questions addressed and answered. She voiced understanding of risks and possible complications. Consent form signed.
[2024-08-03 14:01] LABS: Basophils % 0.2 % (0.1-2.0); Eosinophils % 0.3 % (0.1-12.0); Hematocrit 33.5 % (37.0-47.0); Hemoglobin 11.2 g/dL (12.2-16.2); Lymphocytes # 1.6 K/mm3 (0.7-4.5); Lymphocytes % 15.2 % (10-50); Mean Corpuscular HGB Conc 33.3 g/dL (31.8-35.4); Mean Corpuscular Hemoglobin 26.3 pg (27.0-31.2); Mean Corpuscular Volume 79.1 fl (81-99); Mean Platelet Volume 8.7 fl (7.4-10.4); Monocytes # 0.5 K/mm3 (0.1-1.0); Monocytes % 4.7 % (1.7-9.3); Neutrophils # 8.1 K/mm3 (1.8-7.8); Neutrophils % 79.6 % (37.0-80.0); Platelet Count 235 K/mm3 (142-424); Red Blood Count 4.24 M/mm3 (4.20-5.40); Red Cell Distribution Width 15.6 % (11.5-17.5); White Blood Count 10.2 K/mm3 (4.8-10.8)
[2024-08-03 14:03] LABS: Albumin Level 3.1 g/dl (3.5-5.0); Chloride 105 mmol/L (98-107); Potassium 3.7 mmoL/L (3.5-5.1); Sodium 134 mmol/L (136-145)
[2024-08-03 14:06] LABS: Alanine Aminotransferase 23 U/L (12-78); Alkaline Phosphatase 162 U/L (38-126); Anion Gap 9.7 mEq/L (5-15); Aspartate Amino Transferase 25 U/L (14-36); Bilirubin,Total 0.4 mg/dl (0.2-1.3); Blood Urea Nitrogen 8 mg/dl (7-17); Calcium 8.5 mg/dl (8.4-10.2); Carbon Dioxide 23 mmol/L (22.0-30.0); Creatinine Clearance Estimated 140 mL/min (50-200); Estimated Glomerular Filt Rate 148 ml/min (>60); GFR (African American) 179 ML/MIN (>60); Glucose 99 mg/dl (74-100); Total Protein,Serum 6.1 g/dl (6.3-8.2)
[2024-08-03 15:37] LABS: Uric Acid 3.6 mg/dl (2.5-6.2)
[2024-08-03 16:28] LABS: Creatinine,Urine Random 52 mg/dL (Not Estab.)
[2024-08-04] MEDS: LACTATED RINGERS 1000ML 1,000 ML 250 ML IV (05:35)
[2024-08-04] MEDS: CITRIC ACID/SODIUM CITRATE ORAL SOLN 30ML UDC 30 ML PO (05:35)
--- NOTE | 2024-08-04 09:30 | EXP.OP.NOTE ---
Date of procedure: 08/04/24 Pre-op Diagnosis:: 1. 37 weeks 3days gestation, Rizvi 2. Gestational Hypertension 3. Hx of delivery, declines trial of labor 4. Desire sterilization 5. Obesity, BMI: 48. 6. GBS negative Post-op Diagnosis:: 1. 37 weeks 3days gestation, Rizvi 2. Gestational Hypertension 3. Hx of delivery, declines trial of labor 4. Desire sterilization 5. Obesity, BMI: 48. 6. GBS negative 7. Uterine atony Procedure performed:: Repeat Delivery with bilateral salpingectomy Surgeon:: Uzma Kenny DO Life Insurance Sales Agent(s):: Destiny Ibrahim DO ONLINE MARKETER:: Jim Luna Anesthesia: spinal Estimated blood loss (mL): 500 Operative findings:: 1. Live viable female : Bonnie. Weight: 6pounds 5ounces. Apgars 8 and 9 at 1 and 5 minutes respectively 2. Normal-appearing fallopian tubes and ovaries bilaterally Operative note:: Medications: 900 mg of IV clindamycin, 5 mg/kg of gentamicin, 1 g of tranexamic acid, 0.2 mg of IM Methergine Summary: Procedure explained in its entirety. The patient was counseled on the risks and benefits of section including bleeding, vascular injury, infection, and injury to the surrounding structures. Hemorrhage requiring life saving blood transfusion resulting in blood born viral infection or allergic reaction was explained and the patient consented to blood transfusion. Possible need for further operative measures prolonging recovery time and hospitalization reviewed to include hysterectomy. Procedure explained in its entirety and patient had no further questions. Consented to procedure. The patient was taken back to the operating room where adequate spinal anesthesia was obtained. Pneumatic compression stockings applied to lower extremities. Above-listed antibiotics were administered for infection prophylaxis. She was placed in the dorsal supine position Urinary catheter was placed and found to be draining clear urine. The patient was prepped and draped in sterile fashion. Anesthesia was tested and and found to be adequate. A Pfannenstiel skin incision was made with the scalpel. Subcutaneous bleeding vessels were cauterized with the bovie. The incision was taken down to the fascia with the bovie. The fascia was knicked in the midline and sharply extended laterally. The superior aspect of the fascia was grasped with [place] clamps and the rectus muscle was taken down with the Bovie. The rectus muscle was sharply dissected from the midline with Mayos. This process was repeated inferiorly. The rectus muscles were in the midline, peritoneum was identified and entered bluntly. Kali O retractor was placed and the bladder was noted to be out of the operative field. The lower uterine segment was easily identified, sharply incised, and entered bluntly with the surgeon's index finger. Incision was then extended in a superior and inferior fashion by blunt separation. Membranes were ruptured revealing clear fluid. The fetus was in cephalic presentation. The head was carefully elevated out of the pelvis. Fundal pressure was applied when head was brought into incision. The infants head was delivered without difficulty. The shoulder and body followed without complication. Delivery occurred at 0805. The mouth and nose were suctioned with a bulb. The umbilical cord was clamped and cut. Infant was taken to warmer for evaluation by the er registrar. Cord blood was collected. The placenta was delivered via fundal massage and manual extraction. There was a uterine inversion with placental removal. The placenta was very adherent to the uterine wall. The placenta was removed in its entirety. IV Pitocin was initiated. Inside of the uterus was gently cleared of blood and clots with lap sponge. The uterus was extremely atonic her blood pressure was well-controlled and decision was made to give her a dose of Methergine secondary to severe uterine atony. Prophylactically TXA was administered as well. The hysterotomy was closed with 0 Vicryl in a running locked fashion. The lower uterine segment was slightly oozy and a lap was placed to apply pressure while the fallopian tubes were assessed for salpingectomy. The ovaries and tubes were found to be normal. The posterior aspect of the uterus was cleared of blood clot with a damp lap sponge. The distal portion of the right fallopian tube was grasped with Josh clamp and elevated away from surrounding structures. The Enseal device was inserted over mesosalpinx inferior to right distal fallopian tube and used to serially clamp, fulgurate, and transected the fallopian tube in its entirety. Hemostasis noted and the tube was passed off the operative field to be sent to pathology for further evaluation. This process was repeated on the contralateral side. Hemostasis noted. No bleeding was visualized at the fulguration site. The gutters were inspected bilaterally and cleared of blood and clots with lap sponges. The uterine incision was reinspected and noted to still be using. 0 Vic[address] was used to place a second imbricating stitch and hemostasis was noted. Kali O retractor was removed. Hysterotomy inspected and noted to be hemostatic, Surgicel powder was applied over the uterine incision for added prophylaxis and no bleeding was noted through the powder. The peritoneum was reapproximated using a 2-0 PDS in a nonlocked running fashion. The second half of the Surgicel powder was applied over the rectus muscles for prophylaxis. No bleeding was observed. The fascia was closed in a running nonlocked fashion using 0 PDS x2 meeting right of midline. Fascia was noted as not having gaps or defects. The subcutaneous fat was closed with 0 Monocryl interrupted sutures x5. Skin was closed with the INSORB suture in a subcuticular fashion. There were 2 small areas that were noted to be open after INSORB and a single 4-0 Monocryl stitch was used to close these areas. Patient tolerated the procedure well and all counts were correct x3, per nursing. Patient will receive tap blocks and then be transported to the OB PACU for recovery and infant bonding. Condition: stable Disposition: PACU Specimens:: 1. Placenta 2. Bilateral fallopian tubes 3. Live viable female infant Complications:: None
[2024-08-04] MEDS: OXYTOCIN/RINGERS LACTATE 30 UNITS/500 ML BAG 40 UNITS IV (09:53)
[2024-08-04] MEDS: LACTATED RINGERS 1000ML 1,000 ML 125 ML IV (09:53)
[2024-08-04] MEDS: ACETAMINOPHEN 500MG TAB 1000 MG PO ×3 (10:20→20:54)
[2024-08-04] MEDS: OXYCODONE 5MG IMMEDIATE RELEASE TABLET 5 MG PO ×3 (11:07→20:55)
[2024-08-04] MEDS: SIMETHICONE 80MG CHEWABLE TABLET 160 MG PO ×2 (11:08→22:10)
[2024-08-04] MEDS: KETOROLAC 30MG/ML VIAL 30 MG IV ×2 (15:44→20:54)
[2024-08-04] MEDS: PRENATAL MULTIVITAMIN W/IRON 1 EACH PO (16:24)
[2024-08-05] MEDS: KETOROLAC 30MG/ML VIAL 30 MG IV (03:14)
[2024-08-05] MEDS: SIMETHICONE 80MG CHEWABLE TABLET 160 MG PO (03:14)
[2024-08-05] MEDS: ACETAMINOPHEN 500MG TAB 1000 MG PO ×4 (03:15→20:50)
[2024-08-05] MEDS: OXYCODONE 5MG IMMEDIATE RELEASE TABLET 5 MG PO (03:15)
[2024-08-05 06:58] LABS: Basophils % 0.1 % (0.1-2.0); Eosinophils # 0.1 K/mm3 (0.0-0.4); Eosinophils % 0.8 % (0.1-12.0); Hematocrit 32.6 % (37.0-47.0); Hemoglobin 10.8 g/dL (12.2-16.2); Lymphocytes # 0.7 K/mm3 (0.7-4.5); Lymphocytes % 7.8 % (10-50); Mean Corpuscular Hemoglobin 25.9 pg (27.0-31.2); Mean Corpuscular Volume 78.6 fl (81-99); Mean Platelet Volume 8.5 fl (7.4-10.4); Monocytes # 0.5 K/mm3 (0.1-1.0); Monocytes % 5.1 % (1.7-9.3); Neutrophils # 7.7 K/mm3 (1.8-7.8); Neutrophils % 86.3 % (37.0-80.0); Platelet Count 198 K/mm3 (142-424); Red Blood Count 4.15 M/mm3 (4.20-5.40); Red Cell Distribution Width 15.5 % (11.5-17.5); White Blood Count 8.9 K/mm3 (4.8-10.8)
[2024-08-05 06:59] LABS: MANUAL DIFFERENTIAL MANUAL DIFFERENTIAL (MANUAL DIFF)
[2024-08-05 07:17] LABS: Lymphocytes % 8 % (10-50); Monocytes % 3 % (2-9); Neutrophils % 89 % (42-76); Total Cells Counted 100
[2024-08-05 07:18] LABS: Microcytosis 1+; Platelet Estimate Normal
[2024-08-05 08:35] VITALS: BP 105/61; PULSE 84; RESP 18; TEMP 36.9; O2SAT 100
[2024-08-05] MEDS: FAMOTIDINE 20MG TABLET 20 MG PO (08:43)
[2024-08-05] MEDS: IBUPROFEN 400 MG TABLET 800 MG PO ×2 (08:43→17:37)
--- NOTE | 2024-08-05 14:18 | P.PN_ITS ---
Subjective *Date: 08/05/24 *Time: 14:18 Interval history: Maile Raphael is a G1, P3004 day #1 following a repeat delivery and bilateral salpingectomy at 37 weeks and 3 days gestation. was complicated by gestational hypertension, previous delivery, desires sterilization, and obesity. Routine delivery and course. She is doing well, sitting up in bed, and doing well this morning. -Reports pain is well-controlled -Reports she is tolerating p.o. without nausea or vomiting. -Reports her lochia is scant. -She is breast-feeding her female infant -Ambulating, voiding difficulty or dysuria. Denies chest pain shortness of breath or pain in her legs. No further complaints at this time. Exam Data for Last 24 hours Vital signs and Labs for Last 24 Hours: Temp Pulse Resp BP Pulse Ox O2 Del Method 98.4 F 84 18 105/61 L 100 Room Air 08/05/24 08:35 08/05/24 08:35 08/05/24 08:35 08/05/24 08:35 08/05/24 08:35 08/05/24 08:35 Laboratory Results - last 24 hr 08/05/24 06:29: WBC 8.9, RBC 4.15 L, Hgb 10.8 L, Hct 32.6 L, MCV 78.6 L, MCH 25.9 L, MCHC 33.0, RDW 15.5, Plt Count 198, MPV 8.5, Neut % (Auto) 86.3 H, Lymph % (Auto) 7.8 L, [place] % (Auto) 5.1, Eos % (Auto) 0.8, Baso % (Auto) 0.1, Neut # (Auto) 7.7, Lymph # (Auto) 0.7, [place] # (Auto) 0.5, Eos # (Auto) 0.1, Baso # (Auto) 0.0, Total Counted 100, Neutrophils % (Manual) 89 H, Lymphocytes % (Manual) 8 L, Monocytes % (Manual) 3, Platelet Estimate Normal, Microcytosis 1+ I & O for Last 24 hours: Intake & Output 08/02/24 08/03/24 08/04/24 08/05/24 23:59 23:59 23:59 23:59 Weight 272 lb Narrative: General: patient is alert oriented in no acute distress and responds appropriately to questions. Appears to be in minimal pain. Sitting up in the chair and doing well HEENT: NCAT, EOMI, moist mucous membranes, neck supple with full ROM Cardiovascular: RRR +S1/S2, no murmurs or rubs Pulmonary: Clear to auscultation bilaterally, nonlabored breathing, symmetric chest rise Abdominal: Fundus at the umbilicus, firm, and tenderness appropriate for the period. Extremities: trace edema, no tenderness or cyanosis noted Skin: Normal turgor, intact, warm. Negative for erythema, pallor, petechia, or lesions Neurologic: Negative for sensory or motor deficit Psychiatric: Normal affect, normal thought process, good judgment and insight, no depression or anxious mood appreciated. Assessment and Plan *Assessment and plan (1) Gestational hypertension: Status: Acute Qualifiers: Trimester: third trimester Qualified Code(s): O13.3 - Gestational [-induced] hypertension without significant proteinuria, third trimester Category: Medical Code(s): O13.9 - Gestational [-induced] hypertension without significant proteinuria, unspecified trimester (2) uterine contractions: Status: Acute Category: Medical Code(s): O47.00 - False labor before 37 completed weeks of gestation, unspecified trimester (3) Maternal obesity affecting , antepartum: Status: Acute Qualifiers: Obesity type affecting : severe obesity due to excess calories Qualified Code(s): O99.210 - Obesity complicating , unspecified trimester; E66.01 - Morbid (severe) obesity due to excess calories Category: Medical Code(s): O99.210 - Obesity complicating , unspecified trimester (4) Hx of section: Status: Acute Category: Surgical Code(s): Z98.891 - History of uterine scar from previous surgery Plan Stable. POD#1 s/p repeat delivery and bilateral salpingectomy -Doing well. VSS. Serial lochia and fundal checks. -Continue with perineal ice packs for discomfort -Hemoglobin: 11.2--> 10.8 -O+/antibody negative -, female -Follow-up 2 weeks for routine visit -Dispo: home in 1-3 days pending mother/ status
[2024-08-05 15:58] VITALS: BP 108/63; PULSE 91; RESP 16; TEMP 36.8; O2SAT 99
[2024-08-05] MEDS: PRENATAL MULTIVITAMIN W/IRON 1 EACH PO (17:37)
[2024-08-05 20:00] VITALS: BP 134/77; PULSE 87; RESP 18; TEMP 36.6; O2SAT 99
[2024-08-06] MEDS: ACETAMINOPHEN 500MG TAB 1000 MG PO ×2 (03:03→09:01)
[2024-08-06] MEDS: IBUPROFEN 400 MG TABLET 800 MG PO ×2 (03:04→09:01)
[2024-08-06 04:00] VITALS: BP 104/50; PULSE 95; RESP 15; TEMP 36.9; O2SAT 98
[2024-08-06 07:47] VITALS: BP 128/84; PULSE 91; RESP 17; TEMP 36.7; O2SAT 99
[2024-08-06] MEDS: FAMOTIDINE 20MG TABLET 20 MG PO (09:01)
--- NOTE | 2024-08-06 09:26 | P.DS_ITS ---
General Admission date:: 08/03/24 Discharge date: 08/06/24 HPI HPI HPI: Maile is a 29 yo at 37w2d admitted to [facility] L&D from the office for elevated blood pressure reading in the office and complaint of headache. She has not tried anything for her headache today. She reports mild range BP at home. She reports intermittent headache for a while. She also reports fatigue and dizziness. Baby is active. She admits to intermittent contractions. No leakage of fluid or vaginal bleeding. PIH labs 08/02 were within normal limits. 24 hour urine protein was 154 on 08/02. She has had good care. History of x 1 and x 2. She is complete with childbearing and desires permanent sterilization. History of Present Criteria for establishing EDC:: based on 1st trimester US only care: good care Ultrasounds: normal mid trimester US Obstetrical complications: gestational hypertension and previous Labs Blood type: O (+) positive Rubella: immune RPR/VDRL: nonreactive GBS status: negative HBsAG: negative Hospital Course Hospital Course Hospital Course: Don[place]on was admitted on 08/04/2024 for a repeat delivery with bilateral salpingectomy. She delivered a live viable female , Kaylan at 0805. Infant weighed 6 pounds 5 ounces and Apgars were 8 and 9. Delivery was complicated by uterine atony and she received 1 g of TXA as well as Methergine. She did very well and her course was uncomplicated and routine. She has done well . Routine discharge instructions reviewed patient in detail and she was understanding. All questions and concerns were addressed. She will follow-up in 2 weeks for a visit and incision check. Exam Data for Last 24 hours Vital signs and Labs for Last 24 Hours: Temp Pulse Resp BP Pulse Ox O2 Del Method 98.1 F 91 H 17 128/84 99 Room Air 08/06/24 07:47 08/06/24 07:47 08/06/24 07:47 08/06/24 07:47 08/06/24 07:47 08/06/24 07:47 I & O for Last 24 hours: Intake & Output 08/03/24 08/04/24 08/05/24 08/06/24 23:59 23:59 23:59 23:59 Weight 272 lb Narrative: General: patient is alert oriented in no acute distress and responds appropriately to questions. Appears to be in minimal pain. Sitting up in the chair and doing well HEENT: NCAT, EOMI, moist mucous membranes, neck supple with full ROM Cardiovascular: RRR +S1/S2, no murmurs or rubs Pulmonary: Clear to auscultation bilaterally, nonlabored breathing, symmetric chest rise Abdominal: Fundus below the umbilicus, firm, and tenderness appropriate for the period. Extremities: trace edema, no tenderness or cyanosis noted Skin: Normal turgor, intact, warm. Negative for erythema, pallor, petechia, or lesions. Well-healing Pfannenstiel skin incision no signs of infection Neurologic: Negative for sensory or motor deficit Psychiatric: Normal affect, normal thought process, good judgment and insight, no depression or anxious mood appreciated. DS: Diagnosis Discharge Diagnosis (1) Gestational hypertension: Status: Acute Code(s): O13.9 - Gestational [-induced] hypertension without significant proteinuria, unspecified trimester Qualifiers: Trimester: third trimester Qualified Code(s): O13.3 - Gestational [-induced] hypertension without significant proteinuria, third trimester (2) uterine contractions: Status: Acute Code(s): O47.00 - False labor before 37 completed weeks of gestation, unspecified tri mester (3) Maternal obesity affecting , antepartum: Status: Acute Code(s): O99.210 - Obesity complicating , unspecified trimester Qualifiers: Obesity type affecting : severe obesity due to excess calories Qualified Code(s): O99.210 - Obesity complicating , unspecified trimester; E66.01 - Morbid (severe) obesity due to excess calories (4) Hx of section: Status: Acute Code(s): Z98.891 - History of uterine scar from previous surgery Meds Home Medications and Allergies Home Medications ?Medication ?Instructions ?Recorded ?Confirmed ?Type vits no.126-ferrous fum 1 tab PO DAILY #30 tabs 10/11/23 08/03/24 Rx 28 mg iron-folic acid 800 mcg tablet (Classic ) famotidine 20 mg tablet 20 mg PO DAILY #30 tabs 07/02/24 08/03/24 Rx ibuprofen 800 mg tablet 800 mg PO Q8H PRN pain #60 tabs 08/06/24 Rx oxycodone 5 mg tablet 5 mg PO Q8H PRN pain #20 tabs 08/06/24 Rx sennosides 8.6 mg tablet (Senna 8.6 mg PO BIDP PRN Constipation 08/06/24 Rx Lax) #60 tabs simethicone 125 mg tablet 125 mg PO DAILY PRN abdominal 08/06/24 Rx distention #60 tabs New Prescriptions to Start Prescriptions: Uzma Nash oxycodone Uzma Kenny sennosides [Senna Lax] Uzma Kenny simethicone Uzma Kenny Allergies Allergy/AdvReac Type Severity Reaction Status Date / Time carbinoxamine [From [facility]] Allergy Mild I-HIVES Verified 08/03/24 08:50 cefaclor [From [facility]] Allergy Mild I-HIVES Verified 08/03/24 08:50 pseudoephedrine [From [facility]] Allergy Mild I-HIVES Verified 08/03/24 08:50 Discharge Plan Disposition Patient Disposition: Home, Self-Care Condition: Good Discharge Order Discharge Orders: Discharge Order (Routine); Ordered 08/06/24 Ordered By: Uzma Kenny Follow up Plan Follow up with: Uzma Kenny DO [Staff Physician] - 08/18/24 11:00 am Prescriptions/Medication Reconciliation: New sennosides [Senna Lax] 8.6 mg Tablet 8.6 mg PO BIDP PRN (Reason: Constipation) Qty: 60 2RF ibuprofen 800 mg tablet 800 mg PO Q8H PRN (Reason: pain) Qty: 60 2RF simethicone 125 mg tablet 125 mg PO DAILY PRN (Reason: abdominal distention) Qty: 60 2RF oxycodone 5 mg tablet 5 mg PO Q8H PRN (Reason: pain) Qty: 20 0RF Continued Classic 28 mg iron- 800 mcg tablet 1 tab PO DAILY Qty: 30 11RF famotidine 20 mg tablet 20 mg PO DAILY Qty: 30 2RF Discontinued aspirin 81 mg tablet,delayed release (DR/EC) 81 mg PO DAILY Problem Reconciliation Problems Reviewed?: Yes Patient Discharge Instructions DIET: regular diet Additional Instructions: Congratulations on the delivery of your sweet baby girl. It is my privilege to be your doctor and I am so thankful I could be a part of your special day. Discharge: 1. Take 800 mg Ibuprofen every 8 hours as needed for pain. You can also take 500-1000mg of Tylenol in between doses, every 6-8 hours. Use prescription pain medicine for pain you feel in between 8 hour interval. -No driving while taking narcotic pain medications. In order to drive you should be able to slam on the brakes without significant abdominal pain. 2. Wean from prescription pain medicine first. Do not drive while taking it. 3. Prescription pain medicine can make you constipated. Colace can be taken 1-2 times per day as you need. Make sure to drink at least 8 cups of water per day. 4. Iron supplements can make you constipated. Colace can be taken 1-2 times per day as you need. You can take iron tablets every other day if constipation is too bad. 5. Nothing in the vagina for 6 weeks - no intercourse, douching, tampons. No tub baths or swimming pools 6. Do not lift greater than 15 pounds for 6 weeks, this is the equivalent of 2 gallons of milk. 7. Reasons to return to L&D or call On-Call doctor - fever (greater than 100.4) - heavy vaginal bleeding (soaking through 1 pad in less than 2 hours or passing clots that are egg sized) - vaginal discharge (malodorous and/or purulent) - bleeding or discharge from her incision - severe headaches, leg tenderness/edema, or any other symptoms that warrant immediate medical attention. 8. depression/blues - Normal to feel anxious/overwhelmed for first 2 weeks - Talk to your doctor if: anxiety lasts over 2 weeks, trouble bonding with baby, withdrawing from other family members, thoughts of harming yourself or others Blood pressure and preeclampsia instructions 1. Please take your blood pressure twice daily. 2. Please call if greater than 2 values are higher than: 150 systolic (the top number) or 100 diastolic (the bottom number). 3. Please go to the emergency room or labor and delivery triage if any value is higher than: 160 systolic (the top number) or 110 diastolic (the bottom number). 4. Please call if unrelenting headache (does not go away with rest or Tylenol or ibuprofen), changes in vision (spots, floaters, flashes of light), chest pain, shortness of breath, or right upper quadrant (liver) abdominal pain. Uzma Kenny DO [facility] [phone] *Nothing in the Vagina for 6 weeks* *No strenuous activity* *No heavy lifting* *No tub baths until okay's by MD* Patient Instructions: Depression, Hemorrhage, DI for , DI for Pre-eclampsia, [facility] Post Discharge Instructions Print Language: Romansh Providers Primary Care Provider: Елена Argueta Admit Provider: Bao Lee Attending Provider: Bao Lee
== END 2024-08-06 12:00 | disposition home or self-care (01) | DRG 784 ==
PROVIDERS: Obstetrics & Gynecology; Admitting Provider Nurse Practitioner Obstetrics & Gynecology; PCP Nurse Practitioner; Visit Provider Nurse Practitioner Obstetrics & Gynecology
DX: O13.3 Gestational [pregnancy-induced] hypertension without significant proteinuria, third trimester (principal); O47.03 False labor before 37 completed weeks of gestation, third trimester; O34.218 Maternal care for other type scar from previous cesarean delivery; N85.8 Other specified noninflammatory disorders of uterus; Z3A.37 37 weeks gestation of pregnancy; Z37.0 Single live birth; O99.284 Endocrine, nutritional and metabolic diseases complicating childbirth; E06.3 Autoimmune thyroiditis; Z30.2 Encounter for sterilization; O75.89 Other specified complications of labor and delivery; R51.9 Headache, unspecified
CPT/HCPCS: 36415; 59025; 80053; 82570; 82575; 84155; 84156; 84550; 85007; 85025; 86850; 94761; C9290; G0283; J1885; J2405; J3010; J7120

== ENCOUNTER 2025-02-19 10:40 | Outpatient (CLI) | payer OTHER, SELFPAY ==
--- OUTSIDE RECORDS SUMMARY | 2025-02-19 10:42 | XMS_ITS | Continuity of Care Document ---
Author Organization [facility] Phone Care Team Providers Care Senior Technical Program Manager Name Role Phone DECLINED, PCP Primary Care Unavailable JENI CHOI Primary Attending Unavailable JENI CHOI Admitting Unavailable JENI CHOI Unavailable Unavailable MEDICATIONS HOME MEDICATIONS Status RXNORM NDC Medication Dose Route Frequency Dates Comments Reported By Updated By Drug Treatment Unknown DISCHARGE MEDICATIONS Status RXNORM NDC Medication Dose Route Frequency Dates Comments Physician Updated By No Discharge Medication Info rmation Available INPATIENT MEDICATIONS Status RXNORM NDC Medication Dose Route Frequency Rat e Quantity Dates Comments Physician Updated By No Inpatient Medication Info rmation Available SOCIAL HISTORY SOCIAL HISTORY SNOMED-CT Social History Element Description Effective Dates Offered Cessation Comment UpdatedBy [id number] Smoking Status Unknown If Ever Smoked SOCIAL HISTORY - Gender Sex: Female SOCIAL HISTORY - Status : status i nformation is not available Intention in Next Year: intention information is not available SOCIAL HISTORY - Sexual Behavior Sexual Orientation Gender Identity SNOMED-CT Description SNO MED -CT Description Activity Level No of Partners Partner Type UpdatedBy Information is not available HEALTH CONCERNS Problems Concern Status Health Concern problem infor mation not available. Smoking Status Status Years Used Consumed packs p er day Health Concern smoking histo ry information not available. Family History Concern Status Health Concern family histor y information not available. ENCOUNTERS ENCOUNTER INFORMATION Reason for Visit LACERATION TO FINGER Admission December 22, 2024 11:33:00 PM [facility] [address] [facility] [id number] Discharge December 22, 2024 11:53:00 PM UT L EFT AGAINST ADVICE OR DISCONTINUED ENCOUNTER DIAGNOSES Notes information is not melchor ilable. Code System Diagnosis Onset Date Diagnosis information is not available. ABSTRACT DIAGNOSES Code System Diagnosis Updated By S61.216A ICD10 LACERATION WITHO UT FOREIGN BODY OF RIGHT LITTLE FINGER WITHOUT DAMAGE TO NAIL, INITIAL ENCOUNTER [id number] on December 24, 2024 6:27:41 AM UT Z53.21 ICD10 PROCEDURE AND TR EATMENT NOT CARRIED OUT DUE TO PATIENT LEAVING PRIOR TO BEING SEEN BY HEALTH CARE PROVIDER [id number] on December 24, 2024 6:27:41 AM UTC S61.216A ICD10 LACERATION WITHO UT FOREIGN BODY OF RIGHT LITTLE FINGER WITHOUT DAMAGE TO NAIL, INITIAL ENCOUNTER [id number] on December 24, 2024 6:27:41 AM UTC Z53.21 ICD10 PROCEDURE AND TR EATMENT NOT CARRIED OUT DUE TO PATIENT LEAVING PRIOR TO BEING SEEN BY HEALTH CARE PROVIDER [id number] on December 24, 2024 6:27:41 AM UT W26.8XXA ICD10 CONTACT WITH OTH ER SHARP OBJECT(S), NOT ELSEWHERE CLASSIFIED, INITIAL ENCOUNTER [id number] on December 24, 2024 6:27:41 AM [facility] CARE TEAM Care Senior Technical Program Manager Role PCP DECLINED Primary Care JENI CHOI Primary Attending JENI CHOI Admitting JENI CHOI Referring CARE TEAM CARE material loader Role on Team Status Start Date End Date Update d By DECLINED PCP PCP normal December 22, 2024 4:00:00 AM [facility] December 22, 2024 11:53:00 PM [facility] [id number] on December 22, 2024 11:59:55 PM [facility] STEPH CHAN Referring normal December 22, 2024 4:00:00 AM [facility] December 22, 2024 4:00:00 AM [facility] [id number] on December 22, 2024 11:59:55 PM [facility] STEPH Fan MD Referring normal December 22, 2024 4:00:00 AM [facility] December 22, 2024 11:53:00 PM [facility] [id number] on December 22, 2024 11:59:55 PM [facility] STEPH CHAN Attending normal December 22, 2024 4:00:00 AM [facility] December 22, 2024 4:00:00 AM [facility] [id number] on December 22, 2024 11:59:55 PM [facility] STEPH Fan MD Attending normal December 22, 2024 4:00:00 AM [facility] December 22, 2024 11:53:00 PM [facility] [id number] on December 22, 2024 11:59:55 PM [facility] STEPH CHAN Admitting normal December 22, 2024 4:00:00 AM [facility] December 22, 2024 4:00:00 AM [facility] [id number] on December 22, 2024 11:59:55 PM [facility] STEPH Fan MD Admitting normal December 22, 2024 4:00:00 AM [facility] December 22, 2024 11:53:00 PM [facility] [id number] on December 22, 2024 11:59:55 PM [facility] normal December 22 11:33:27 PM [facility] December 22, 2024 4:00:00 AM [facility] [id number] on December 22, 2024 11:59:55 PM [facility]
[2025-02-19 11:52] LABS: HCG,Quantitative < 2 mIU/ml (0-5.42)
[2025-02-20 11:28] LABS: FSH 8.3 mIU/mL (.); LH 15.2 mIU/mL (.); Progesterone 0.2 ng/mL (.)
== END 2025-02-19 23:59 | disposition home or self-care (01) ==
LOC: LAB 10:41
PROVIDERS: PCP Physician Assistant; Visit Provider Obstetrics & Gynecology
DX: Z01.419 Encounter for gynecological examination (general) (routine) without abnormal findings (principal)
CPT/HCPCS: 36415; 82670; 83001; 83002; 84144; 84702